=== PATIENT | female | born 1975 | race Hispanic/Latino ===

== ENCOUNTER 2017-04-12 05:56 | Emergency (ER) | payer BC, OTHER ==
[2017-04-12] MEDS ORDERED: BENADRYL IV ONE (07:52)
[2017-04-12] MEDS ORDERED: PEPCID IV ONE ×2 (07:52→10:02)
[2017-04-12] MEDS ORDERED: NACL 0.9% 500 ML 500 ML IV ONE (07:53)
--- NOTE | 2017-04-12 07:53 | Emergency Department Report ---
ED Allergic Reaction HPI - General Chief complaint: Allergic Reaction Stated complaint: ALLERGIC REACTION Time Seen by Provider: 04/12/17 07:32 Source: patient Mode of arrival: Ambulatory Limitations: No Limitations - History of Present Illness Initial Comments: 41-year-old female past medical history none presents with complaint of hives and pruritus, bilateral mild hand swelling and swelling of the upper lip and right eyebrow 4-5 days. Patient states that she was recently on a course of amoxicillin for a dental procedure. Patient states that she began developing hives and urticaria earlier this week once the primary doctor where she was treated with Benadryl and a dose of injectable steroid, discharged with prednisone dosepak. Patient states that symptoms got slightly worse since yesterday which is why she presents the ED. Patient is awake alert and oriented 3 no audible wheezing or stridor no visible respiratory distress visible hives on the upper extremities and face small amount of upper lip swelling and right eyebrow swelling. Patient states that her skin feels very itchy. Took prednisone this morning. Denies any recent travel or exposure to new cosmetics or fabrics, skin products or soaps. States that the only recent new medication she has used was a course of amoxicillin which she finished yesterday. Patient is accompanied by family member Complaint: allergic reaction, hives, facial swelling Onset/Timin -: days(s) Symptoms: rash, itching, facial swelling, lip swelling Severity: moderate Treatment Prior to Arrival: benadryl, steroids, topical medicine Previous Allergy History: none - Related Data Home Medications Medication Instructions Recorded Confirmed Last Taken Prednisone 10 mg PO 04/12/17 Unknown hydrOXYzine 25 mg PO TID PRN 04/12/17 04/12/17 Unknown Previous Rx's Medication Instructions Recorded Last Taken Type EPINEPHrine (NF) [Epipen (Nf)] 0.3 mg IM ONCE PRN #1 syringekit 04/12/17 Unknown Rx Famotidine [Pepcid] 20 mg PO BID #30 tablet 04/12/17 Unknown Rx Hydrocortisone 1% [Hydrocortisone 1 applicatio TP TID PRN #1 tube 04/12/17 Unknown Rx 1% CREAM] Loratadine [Claritin] 10 mg PO DAILY #30 tablet 04/12/17 Unknown Rx Allergies Allergy/AdvReac Type Severity Reaction Status Date / Time No Known Allergies Allergy Unverified 04/12/17 06:28 ED Review of Systems ROS: Stated complaint: ALLERGIC REACTION Other details as noted in HPI Constitutional: denies: chills, fever Eyes: as per HPI. denies: eye pain, eye discharge, vision change ENT: denies: ear pain, throat pain Respiratory: denies: cough, shortness of breath, wheezing Cardiovascular: denies: chest pain, palpitations Endocrine: no symptoms reported Gastrointestinal: denies: abdominal pain, nausea, diarrhea Genitourinary: denies: urgency, dysuria, discharge Musculoskeletal: denies: back pain, joint swelling, arthralgia Skin: as per HPI, lesions (hives), pruritus. denies: rash Neurological: denies: headache, weakness, paresthesias Psychiatric: denies: anxiety, depression Hematological/Lymphatic: denies: easy bleeding, easy bruising ED Past Medical Hx - Past Medical History Previous Medical History?: No - Surgical History Additional Surgical History: UTERINE ABLATION - Social History Smoking Status: Never Smoker Substance Use Type: None - Medications Home Medications: Home Medications Medication Instructions Recorded Confirmed Last Taken Type EPINEPHrine (NF) [Epipen (Nf)] 0.3 mg IM ONCE PRN #1 syringekit 04/12/17 Unknown Rx Famotidine [Pepcid] 20 mg PO BID #30 tablet 04/12/17 Unknown Rx Hydrocortisone 1% [Hydrocortisone 1 applicatio TP TID PRN #1 tube 04/12/17 Unknown Rx 1% CREAM] Loratadine [Claritin] 10 mg PO DAILY #30 tablet 04/12/17 Unknown Rx Prednisone 10 mg PO 04/12/17 Unknown History hydrOXYzine 25 mg PO TID PRN 04/12/17 04/12/17 Unknown History ED Physical Exam - General Limitations: No Limitations General appearance: alert, in no apparent distress - Head Head exam: Present: atraumatic, normocephalic, other (mild right eyelid swelling ) - Eye Eye exam: Present: normal appearance, PERRL, EOMI - ENT ENT exam: Present: mucous membranes moist - Neck Neck exam: Present: normal inspection, full ROM - Respiratory Respiratory exam: Present: normal lung sounds bilaterally. Absent: respiratory distress - Cardiovascular Cardiovascular Exam: Present: regular rate, normal rhythm. Absent: systolic murmur, diastolic murmur, rubs, gallop - GI/Abdominal GI/Abdominal exam: Present: soft, normal bowel sounds - Extremities Exam Extremities exam: Present: normal inspection - Back Exam Back exam: Present: normal inspection - Neurological Exam Neurological exam: Present: alert, oriented X3 - Psychiatric Psychiatric exam: Present: normal affect, normal mood - Skin Skin exam: Present: warm, dry, intact, normal color. Absent: rash ED Course Vital Signs 04/12/17 04/12/17 06:16 09:06 Temperature 97.8 F Pulse Rate 98 H 74 Respiratory 16 20 Rate Blood Pressure 142/73 Blood Pressure 142/73 119/64 [Left] O2 Sat by Pulse 100 97 Oximetry ED Medical Decision Making - Lab Data Result diagrams: 04/12/17 08:01 04/12/17 08:01 - Medical Decision Making A/P: Allergic reaction, hives 1-patient already on prednisone Dosepak as per her PMD 2-Claritin and Pepcid in addition to hydroxyzine which patient is already taking 3-topical hydrocortisone and Benadryl 4- I will provide patient with EpiPen and I educated her on signs and symptoms of anaphylaxis and angioedema 5- patient tolerating by mouth no signs of oropharyngeal involvement no tongue swelling Critical care attestation.: If time is entered above; I have spent that time in minutes in the direct care of this critically ill patient, excluding procedure time. ED Disposition Clinical Impression: Hives, Swollen upper lip Allergic reaction Qualifiers: Encounter type: initial encounter Qualified Code(s): T78.40XA - Allergy, unspecified, initial encounter Disposition: - TO HOME OR SELFCARE Is pt being admited?: No Does the pt Need Aspirin: No Condition: Stable Instructions: Urticaria (ED), Angioedema (ED), Anaphylaxis (ED), Epinephrine ( Injection) Prescriptions: EPINEPHrine (NF) [Epipen (Nf)] 0.3 mg IM ONCE PRN #1 syringekit PRN Reason: Anaphylaxis Famotidine [Pepcid] 20 mg PO BID #30 tablet Hydrocortisone 1% [Hydrocortisone 1% CREAM] 1 applicatio TP TID PRN #1 tube PRN Reason: Itching Loratadine [Claritin] 10 mg PO DAILY #30 tablet Referrals: [facility] [Provider Group] - 3-5 Days CLAUDETTE GUZMÁN MD [Staff Physician] - 3-5 Days Forms: Accompanied Note, Work/School Release Form(ED) Time of Disposition: 12:08
[2017-04-12 08:16] LABS: Basophils % (Auto) 0.2 % (0.0-1.8); Eosinophils % (Auto) 0.3 % (0.0-4.3); Mean Corpuscular HGB Conc 34 % (30-34); Mean Corpuscular Hemoglobin 30 pg (28-32); Mean Corpuscular Volume 91 fl (79-97); Platelet Count 311 K/mm3 (140-440); Red Cell Distribution Width 12.9 % (13.2-15.2); White Blood Count 15.8 K/mm3 (4.5-11.0)
[2017-04-12 08:37] LABS: Anion Gap 20 mmol/L; BUN/Creatinine Ratio 26.66; Blood Urea Nitrogen 16 mg/dL (7-17); Calcium 8.7 mg/dL (8.4-10.2); Carbon Dioxide 20 mmol/L (22-30); Chloride 109.4 mmol/L (98-107); Glucose 90 mg/dL (65-100); Potassium 3.8 mmol/L (3.6-5.0); Sodium 146 mmol/L (137-145)
[2017-04-12] MEDS ORDERED: PEPCID PO ONE (10:01)
[2017-04-12 12:24] VITALS: BP 119/80
== END 2017-04-12 12:25 | disposition home or self-care (01) ==
LOC: ED 05:56
DX: L50.9 Urticaria, unspecified (principal); T36.0X5A Adverse effect of penicillins, initial encounter; Y92.89 Other specified places as the place of occurrence of the external cause
CPT/HCPCS: 36415; 80048; 85025; 96374; 96375; 96376; 99283; J1200; J2930; J7040

== ENCOUNTER 2018-04-23 08:23 | Outpatient (CLI) | payer BC ==
--- NOTE | 2018-04-23 16:34 | Mammography Report ---
BILATERAL DIGITAL SCREENING MAMMOGRAM with CAD: 04/23/18 08:23:00 CLINICAL: Routine screening. COMPARISON:09/14/15 FINDINGS: The breasts are mostly fatty with a few bilateral scattered fibroglandular densities. No mass, architectural distortion or suspicious calcifications. IMPRESSION: No mammographic evidence of malignancy. BI-RADS CATEGORY: 2 -- Benign RECOMMENDATION: Routine mammographic screening in one year. COMMENT: Patient follow-up letters are generated by our [employer] application.
== END 2018-04-23 08:24 | disposition home or self-care (01) ==
LOC: SPVWC 08:23
PROVIDERS: ATTEND Obstetrics & Gynecology
DX: Z12.31 Encounter for screening mammogram for malignant neoplasm of breast (principal)
CPT/HCPCS: 77067